=== PATIENT | male | born 1980 | race Two or more races ===

== ENCOUNTER 2025-03-31 07:48 | Emergency (ER) | payer MEDICAID, OTHER ==
[~2025-03-31] VITALS: Ht 170.2 cm; Wt 132.0 kg
--- NOTE | 2025-03-31 09:02 | DVH ---
EXAM: XY R RIB XRAY HISTORY: fall COMPARISON: None TECHNIQUE: Frontal view of the chest and multiple views of the right ribs were performed. FINDINGS: No pneumothorax, pulmonary edema, or consolidative infiltrates. The heart is not enlarged. No fract ures are identified about the bony thorax. IMPRESSION: 1. No evidence of rib fracture or other acute intrathoracic process.
[2025-03-31] MEDS: KETOROLAC TROMETH 60MG/2ML VIAL IM ONE (09:05)
[2025-03-31 09:19] VITALS: BP 148/80; PULSE 75; RESP 18; TEMP 98.2; O2SAT 95
--- NOTE | 2025-03-31 09:39 | ED.PDOC ---
SOB-HPI HPI Comments 44 year old male presented to the emergency department complaining of shortness of breath but mostly had a fall and hurt his right chest the ribs very painful Chief Complaint: Shortness of Breath Time Seen by MD: 07:58 Reviewed notes: Nurses Notes, Medications, Allergies Information Source: Patient Mode of Arrival: Ambulatory Severity: Moderate Timing: Hours Duration: Since onset Context: At Rest, With Light Exertion PE Risk Factors: Trauma History of: Other (Patient had a fall and hurt his ribs on right side) Modifying Factors: Nothing Associated Signs and Symptoms: Chest Pain Quality: Sharp, Aching Radiation: No Radiation Location: Chest (R) If cough with SOB: Non-Productive Past Medical History PAST MEDICAL HISTORY: Denies Surgical History: Denies all surgeries Family History Family History: Reviewed,noncontributory to illness, No family hx of Cancer, No family hx of DM, No family hx of Heart radha, No family hx of HTN, No family hx ofKidney radha, No family hx of Liver radha, No family hx of Lung radha, No family hx of Stroke Social History Smoker: Non-Smoker Alcohol: Occasionally Drugs: Denies Drug Use Lives In: Home Constitutional: denies: chills, diaphoresis, fatigue, fever, malaise, sweats, weakness, others EENTM: denies: blurred vision, double vision, ear bleeding, ear discharge, ear drainage, ear pain, ear ringing, eye pain, eye redness, hearing loss, mouth pain, mouth swelling, nasal discharge, nose bleeding, nose congestion, nose pain, photophobia, tearing, throat pain, throat swelling, voice changes, others Respiratory: reports: shortness of breath; denies: cough, hemoptysis, orthopnea, SOB at rest, SOB with excertion, stridor, wheezing, others Cardiovascular: reports: chest pain; denies: dizzy spells, diaphoresis, Dyspnea on exertion, edema, irregular heart beat, left arm pain, lightheadedness, palpitations, PND, syncope, others Gastrointestinal: denies: abdomen distended, abdominal pain, blood streaked bowels, constipated, diarrhea, dysphagia, difficulty swallowing, hematemesis, melena, nausea, poor appetite, poor fluid intake, rectal bleeding, rectal pain, vomiting, others Genitourinary: denies: burning, dysuria, flank pain, frequency, hematuria, incontinence, penile discharge, penile sore, pain, testicle pain, testicle swelling, urgency, others Neurological: denies: dizziness, fainting, headache, left sided numbness, left sided weakness, numbness, paresthesia, pre-existing deficit, right sided numbness, right sided weakness, seizure, speech problems, tingling, tremors, weakness, others Musculoskeletal: denies: back pain, gout, joint pain, joint swelling, muscle pain, muscle stiffness, neck pain, others Integumetry: denies: bruises, change in color, change in hair/nails, dryness, laceration, lesions, lumps, rash, wounds, others Allergic/Immunocompromised: denies: Difficulty Healing, Frequent Infections, Hives, Itching, others Hematologic/Lymphatic: denies: anemia, blood clots, easy bleeding, easy bruising, swollen glands, others Endocrine: denies: excessive hunger, excessive sweating, excessive thirst, excessive urination, flushing, intolerance to cold, intolerance to heat, unexplained weight gain, unexplained weight loss, others Psychiatric: denies: anxiety, bipolar disorder, depression, hopeless, panic disorder, schizophrenia, sleepless, suicidal, others All Other Systems: Reviewed and Negative Physical Exam General Appearance: Moderate Distress, Obese HEENT: Normal ENT Inspection, Pharynx Normal, TMs Normal Neck: Full Range of Motion, Non-Tender, Normal, Normal Inspection Respiratory: Decreased Breath Sounds, Lungs Clear, No Accessory Muscle Use, No Respiratory Distress, Normal Breath Sounds, Other (Contusion to the right ribs after fall) Cardiovascular: No Edema, No JVD, No Murmur, No Gallop, Normal Peripheral Pulses, Regular Rate/Rhythm Breast Exam: Deferred Gastrointestinal: No Organomegaly, Non Tender, No Pulsatile Mass, Normal Bowel Sounds, Soft, Other (Obesity) Genitalia: Deferred Pelvic: Deferred Rectal: Deferred Extremities: No calf tenderness, Normal capillary refill, Normal inspection, Normal range of motion, Non-tender, No pedal edema 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 Was a procedure done?: No Differential Dx Differential Diagnosis: Pneumonia, Other (Ribs fractures or contused) X-Ray, Labs, Meds, VS Vital Signs Date Time Temp Pulse Resp B/P (MAP) Pulse Ox O2 Delivery O2 Flow Rate FiO2 03/31/25 08:02 98.5 74 18 148/80 95 98.5 03/31/25 07:56 75 Current Medications Medications (Trade) Dose Ordered Sig/Codie Route Start Time Stop Time Status Last Admin Ketorolac Tromethamine (Toradol Injection) 60 mg ONCE ONCE IM 03/31/25 08:30 03/31/25 08:31 DC 03/31/25 09:05 X-Ray, Labs, Meds, VS Comment Course in the emergency department eventful patient came in because of right for rib pains after a fall The x-rays negative for fracture Patient will be discharged home with a pain medication and anti-inflammatory Time of 1ST Reevaluation: 07:58 Reevaluation 1ST: Unchanged Time of 2ND Reevaluation: 09:50 Reevaluation 2ND: Improved Consultation: PCP Patient Education/Counseling: Diagnosis, Treatment, Prognosis, Need For Follow Up Family Education/Counseling: Diagnosis, Treatment, Prognosis, Need For Follow Up, No Family Present SEPSIS Sepsis Screen Date sepsis recognized/suspect: Mar 31, 2025 Time Sepsis recognized/suspect: 075 Recent Procedure: No On Antibiotic Therapy: No Respiratory Rate >20: No Heart Rate >90: No Temp<36 C (96.8 F) or >38.3 C: No SBP <90 or MAP <65 mmHG: No New Acute Mental Status Change: No Is the patient on CPAP, BIPAP,: No Physician Orders Electrocardigram (03/31/25 08:07) R Rib Xray (03/31/25 08:22) Vital Signs Date Time Temp Pulse Resp B/P (MAP) Pulse Ox O2 Delivery O2 Flow Rate FiO2 03/31/25 08:02 98.5 74 18 148/80 95 98.5 03/31/25 07:56 75 Medications Medications Dose Ordered Sig/Codie Route Start Time Stop Time Status Last Admin Dose Admin Ketorolac Tromethamine 60 mg ONCE ONCE IM 03/31/25 08:30 03/31/25 08:31 DC 03/31/25 09:05 Departure 1 Departure Time of Disposition: 09:51 Impression: Primary Impression: Contusion of rib on right side Qualified Codes: S29.8XXA - Other specified injuries of thorax, initial enco unter Disposition: HOME / SELF CARE / HOMELESS Condition: Fair e-Prescriptions Naproxen (Naproxen) 375 Mg Tab 375 MG PO TID for 10 Days, #30 TAB Prov: JASMYN VILLAR MD 03/31/25 Discharged With: Self Critical Care Note Critical Care Time?: No Stability Stability form required: No Heart Score Heart Score: Heart Score Response (Comments) Value History N/A 0 EKG Normal 0 Age <45 0 Risk Factors N/A 0 Troponin N/A 0 Total 0 JASMYN VILLAR MD Mar 31, 2025 09:39
[2025-03-31] MEDS ORDERED: HYDR-4902 PO (09:53)
[2025-03-31] MEDS ORDERED: NAPR-957 PO (09:53)
--- NOTE | 2025-04-03 06:34 | ECG ---
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
== END 2025-03-31 10:08 | disposition home or self-care (01) ==
LOC: ER 07:48
DX: S20.211A Contusion of right front wall of thorax, initial encounter (principal); W18.39XA Other fall on same level, initial encounter; Y93.89 Activity, other specified; Y92.89 Other specified places as the place of occurrence of the external cause; Y99.8 Other external cause status
CPT/HCPCS: 71101; 96372; 99283; J1885; 93005